=== PATIENT | female | born 1960 | race Caucasian/White ===

== ENCOUNTER → 2017-02-02 | Day surgery (SDC) | payer BC ==
[~2017-02-02] MED LIST: ASPIRIN81 M2 PO; COREG3.125 MG PO; COZAAR25 MG PO; DULOXETINE HCL60 M1 PO; FLEXERIL10 MG PO; GABAPENTIN400 M2 PO; LASIX20 MG PO; LIPITOR20 MG PO; ORUDIS75 M1 PO; PRAVASTATIN SOD20 MG PO; PRINIVIL10 MG PO; ROPINIROLE HC0.25 MG PO
--- NOTE | ~2017-02-02 | OR ---
Unit #: [id number] #: [id number] Patient: SUMI DRAPER [id number] [address] [place], [place] [address] [id number] MR#: [id number] NAME: SUMI DRAPER. ROOM: Date of Procedure: 02/02/2017 Admission Date: 02/02/2017 Surgeon: Naseem Dumont M.D. : 1960 Attending Physician: Naseem Dumont M.D. Primary Care Physician: Phyllis Dominguez M.D. OPERATIVE REPORT PRIMARY CARE PHYSICIAN Phyllis Dominguez M.D. PREOPERATIVE DIAGNOSIS Colorectal cancer screening in an average-risk patient. PROCEDURES PERFORMED Colonoscopy and polypectomy. POSTOPERATIVE DIAGNOSES 1. The patient had 2 sessile polyps, one each in the mid sigmoid colon and cecum. These ranged in size from 5 to 8 mm each. Both were sessile and were removed using snare polypectomy. 2. Rest of examination up to cecum was normal. The quality of the prep was excellent. RECOMMENDATIONS 1. Follow up results of polyp histology. 2. Consider repeat surveillance colonoscopy in 5 years. SEDATION USED MAC. DESCRIPTION OF PROCEDURE Following detailed explanation of potential risks and complications of a colonoscopy, namely perforation, bleeding, and complications related to sedation, the patient was brought to GI lab and laid in the left lateral decubitus position. A digital rectal examination was performed, which was normal. Lubricated tip of the Olympus video colonoscope was inserted through the anus and advanced under direct vision. The scope was advanced and passed up to sigmoid into descending colon. No diverticula were seen in this area. The scope tip was then navigated all the way up to cecum with visualization of the ileocecal valve and the appendiceal orifice. Preparation was excellent with good visualization and photodocumentation was obtained. Successive segments of the colonic mucosa were examined upon withdrawal. The patient was noted to have 2 sessile polyps, the first one was in the cecum and second one in the mid sigmoid colon. The polyps ranged in size from 6 to 8 mm each. Both were removed using snare polypectomy, retrieved and sent for histology. No additional polyps were noted. The patient did not have any diverticulosis nor any hemorrhoids. The scope was then withdrawn. The patient returned to the recovery area. She tolerated the procedure without any postprocedure complications. Unit #: [id number] #: [id number] Patient: SUMI DRAPER Dictated by... Modesto Calderon/akshat TD: 02/02/2017 23:55 JOB #: [id number] OPERATIVE REPORT X Naseem Dumont MD PROCEDURE OPERATIVE NOTE
== END | disposition home or self-care (01) ==
LOC: COPS 07:18
DX: Z12.11 Encounter for screening for malignant neoplasm of colon (principal); K63.5 Polyp of colon; J44.9 Chronic obstructive pulmonary disease, unspecified; I25.2 Old myocardial infarction; I50.9 Heart failure, unspecified; N39.3 Stress incontinence (female) (male); Z95.5 Presence of coronary angioplasty implant and graft; Z98.51 Tubal ligation status; Z90.710 Acquired absence of both cervix and uterus; Z98.890 Other specified postprocedural states; Z79.82 Long term (current) use of aspirin; Z79.899 Other long term (current) drug therapy; Z87.891 Personal history of nicotine dependence
CPT/HCPCS: 88305